=== PATIENT | female | born 1995 | race Caucasian/White ===

== ENCOUNTER 2018-08-26 12:24 | Outpatient (CLI) | payer OTHER ==
[2018-08-26 13:00] LABS: APPEARANCE,URINE SLIGHTLY-CLOUDY; BILIRUBIN,URINE NEGATIVE (NEGATIVE); COLOR,URINE YELLOW; GLUCOSE, URINE NEGATIVE (NEGATIVE); KETONES,URINE NEGATIVE (NEGATIVE); LEUKOCYTE ESTERASE,URINE SMALL (NEGATIVE); NITRITE,URINE NEGATIVE (NEGATIVE); PROTEIN,URINE NEGATIVE (NEGATIVE); URINE SPECIFIC GRAVITY 1.012; UROBILINOGEN,URINE NEGATIVE mg/dL (<2.0)
[2018-08-26 13:29] LABS: URINE AMPHETAMINES SCREEN NEGATIVE; URINE BARBITURATES SCREEN NEGATIVE; URINE BENZODIAZEPINES SCREEN NEGATIVE; URINE COCAINE SCREEN NEGATIVE; URINE MARIJUANA (THC) SCREEN NEGATIVE; URINE METHADONE SCREEN NEGATIVE; URINE PHENCYCLIDINE SCREEN NEGATIVE
[2018-08-26 13:54] LABS: UR PRO/CREAT RATIO RESULT 0.1 mg/mg (0.0-0.2); URINE CREATININE 99.9 mg/dL (16-327); URINE PROTEIN 10.1 mg/dL (<12)
[2018-08-26 14:10] LABS: HEMATOCRIT 30.8 % (36.0-47.0); HEMOGLOBIN 10.2 g/dL (12.0-15.5); MEAN CORPUSCULAR HEMOGLOBIN 23.7 pg (27.0-33.4); MEAN CORPUSCULAR HGB CONC 33.1 g/dL (32.0-36.0); MEAN CORPUSCULAR VOLUME 72 fl (80-97); PLATELET COUNT 229 10^3/uL (150-450); RED CELL DISTRIBUTION WIDTH 16.8 % (11.5-14.0); WHITE BLOOD COUNT 9.5 10^3/uL (4.0-10.5)
[2018-08-26 14:35] LABS: ALANINE AMINOTRANSFERASE 27 U/L (9-52); ALBUMIN 3.4 g/dL (3.5-5.0); ALKALINE PHOSPHATASE 120 U/L (38-126); ANION GAP 7 (5-19); ASPARTATE AMINO TRANSFERASE 28 U/L (14-36); BILIRUBIN,DIRECT 0.2 mg/dL (0.0-0.4); BILIRUBIN,TOTAL 0.3 mg/dL (0.2-1.3); BLOOD UREA NITROGEN 5 mg/dL (7-20); CALCIUM 9.2 mg/dL (8.4-10.2); CARBON DIOXIDE 24 mmol/L (22-30); CHLORIDE 105 mmol/L (98-107); GLUCOSE 71 mg/dL (75-110); POTASSIUM 4.2 mmol/L (3.6-5.0); SODIUM 136.1 mmol/L (137-145); TOTAL PROTEIN 6.2 g/dL (6.3-8.2); URIC ACID 4.4 mg/dL (2.5-6.2)
[2018-08-26] MEDS ORDERED: HYDROXYZINE PAMOATE 50 MG CAPSULE ONE (14:41)
[2018-08-26] MEDS ORDERED: HYDROXYZINE PAMOATE 50 MG CAPSULE PO ONE (14:43)
== END 2018-08-26 14:51 | disposition home or self-care (01) ==
LOC: LC 12:24
PROVIDERS: ATTEND Obstetrics & Gynecology
PROC: 4A1HXCZ Monitoring of Products of Conception, Cardiac Rate, External Approach (ICD-10-PCS; principal; 2018-08-26)
DX: O47.03 False labor before 37 completed weeks of gestation, third trimester (principal); O30.003 Twin pregnancy, unspecified number of placenta and unspecified number of amniotic sacs, third trimester; Z3A.33 33 weeks gestation of pregnancy
CPT/HCPCS: 36415; 59025; 80053; 80307; 81001; 82570; 83615; 84156; 84550; 85027

== ENCOUNTER 2018-09-23 06:58 | Inpatient (IN) | payer OTHER ==
[2018-09-22 12:40] LABS: APPEARANCE,URINE CLOUDY; BILIRUBIN,URINE NEGATIVE (NEGATIVE); GLUCOSE, URINE NEGATIVE (NEGATIVE); KETONES,URINE NEGATIVE (NEGATIVE); LEUKOCYTE ESTERASE,URINE LARGE (NEGATIVE); NITRITE,URINE NEGATIVE (NEGATIVE); PROTEIN,URINE 30 mg/dL (NEGATIVE); URINE SPECIFIC GRAVITY 1.023
[2018-09-22 12:45] LABS: COLOR,URINE DARK YELLOW
[2018-09-22 12:46] LABS: ABSOLUTE EOSINOPHILS # (AUTO) 0.1 10^3/uL (0.0-0.6); ABSOLUTE LYMPHOCYTES (AUTO) 1.6 10^3/uL (0.5-4.7); ABSOLUTE MONOCYTES (AUTO) 0.7 10^3/uL (0.1-1.4); ABSOLUTE NEUT (AUTO) 6.1 10^3/uL (1.7-8.2); BASOPHILS % (AUTO) 0.3 % (0-2); EOSINOPHILS % (AUTO) 0.8 % (0-6); HEMATOCRIT 30.3 % (36.0-47.0); HEMOGLOBIN 10.3 g/dL (12.0-15.5); LYMPHOCYTES % (AUTO) 18.8 % (13-45); MEAN CORPUSCULAR HEMOGLOBIN 23.5 pg (27.0-33.4); MEAN CORPUSCULAR HGB CONC 33.9 g/dL (32.0-36.0); MEAN CORPUSCULAR VOLUME 69 fl (80-97); MONOCYTES % (AUTO) 8.8 % (3-13); PLATELET COUNT 192 10^3/uL (150-450); RED BLOOD COUNT 4.38 10^6/uL (3.72-5.28); SEGMENTED NEUTROPHILS % (AUTO) 71.3 % (42-78); TOTAL CELLS COUNTED % (AUTO) 100 %; WHITE BLOOD COUNT 8.5 10^3/uL (4.0-10.5)
[2018-09-22 12:59] LABS: URINE AMPHETAMINES SCREEN NEGATIVE; URINE BARBITURATES SCREEN NEGATIVE; URINE BENZODIAZEPINES SCREEN NEGATIVE; URINE COCAINE SCREEN NEGATIVE; URINE MARIJUANA (THC) SCREEN NEGATIVE; URINE METHADONE SCREEN NEGATIVE; URINE PHENCYCLIDINE SCREEN NEGATIVE
[~2018-09-23 06:58] MED LIST: CEFAZOLIN 2 GM/D5W RTU 2 GM/50 ML RTUPB IV SCH; LACTATED RINGERS 1000 ML IV PRN; LIDOCAINE 0.5% INJ-PF (5 MG/ML) 50 ML SDV SUBCUT PRN; RINGERS SOLUTION,LACTATED 1,000 ML IV PRN
[2018-09-23] MEDS ORDERED: ACETAMINOPHEN 1,000 MG/100 ML RTUPB IV ONE (07:14)
[2018-09-23] MEDS ORDERED: ONDANSETRON HCL INJ/PF 4 MG/2 ML SDV ONE (07:14)
[2018-09-23] MEDS ORDERED: OXYTOCIN 10 UNIT/ML VIAL ONE (09:08)
[2018-09-23] MEDS ORDERED: OXYTOCIN/NORMAL SALINE 20 UNIT/1,000 ML RTUINJ ONE (09:08)
[2018-09-23] MEDS ORDERED: KETOROLAC TROMETHAMINE 60 MG/2 ML SDV ONE (09:08)
[2018-09-23] MEDS ORDERED: MISOPROSTOL 0.2 MG TABLET ONE (10:24)
[2018-09-23] MEDS ORDERED: ONDANSETRON HCL INJ/PF 4 MG/2 ML SDV IV PRN (10:30)
[2018-09-23] MEDS ORDERED: FENTANYL CITRATE INJ/PF 100 MCG/2 ML AMPUL IV PRN ×3 (10:30)
[2018-09-23] MEDS ORDERED: MEPERIDINE HCL/PF INJ 25 MG/1 ML DISP.SYRIN IV PRN (10:30)
[2018-09-23] MEDS ORDERED: MORPHINE SULFATE 10 MG/ML INJ IV PRN (10:30)
[2018-09-23] MEDS ORDERED: DIPHENHYDRAMINE HCL 50 MG/ML VIAL IV PRN (10:30)
[2018-09-23] MEDS ORDERED: PROMETHAZINE HCL INJ 25 MG/1 ML VIAL IV PRN ×2 (10:30→11:13)
[2018-09-23] MEDS ORDERED: MIDAZOLAM 2 MG/2 ML INJ ONE (10:59)
[2018-09-23] MEDS ORDERED: LIDOCAINE 1.5%/EPINEPHRINE INJ 5 ML AMP ONE (11:03)
[2018-09-23] MEDS ORDERED: DIPH/PERTUSS(ACELL)/TETANUS VAC/PF 0.5 ML SYR (>=10YO) IM PRN (11:13)
[2018-09-23] MEDS ORDERED: ACETAMINOPHEN 325 MG TABLET PO PRN (11:13)
[2018-09-23] MEDS ORDERED: ACETAMINOPHEN 1,000 MG/100 ML RTUPB IV PRN (11:13)
[2018-09-23] MEDS ORDERED: RINGERS SOLUTION,LACTATED 1,000 ML IV PRN (11:13)
[2018-09-23] MEDS ORDERED: MEASLES,MUMPS&RUBELLA VACC/PF 0.5 ML VIAL SUBCUT PRN (11:13)
[2018-09-23] MEDS ORDERED: OXYTOCIN/NORMAL SALINE 20 UNIT/1,000 ML RTUINJ IV PRN (11:13)
[2018-09-23] MEDS ORDERED: OXYCODONE-ACETAMINOPHEN 5-325 MG TABLET PO PRN (11:13)
[2018-09-23] MEDS ORDERED: HYDROMORPHONE HCL INJ/PF 2 MG/ML AMPULE IV PRN (11:13)
[2018-09-23] MEDS: FENTANYL CITRATE INJ/PF 100 MCG/2 ML AMPUL ONE ×2 (11:15→11:25)
[2018-09-23 12:04] LABS: CHLAM PCR NOT DETECTED (NOT DETECT)
[2018-09-23] MEDS ORDERED: HYDROMORPHONE HCL INJ/PF 2 MG/ML AMPULE ONE (12:17)
[2018-09-23] MEDS ORDERED: MEPERIDINE HCL/PF INJ 25 MG/1 ML DISP.SYRIN ONE (12:22)
[2018-09-23] MEDS: OXYCODONE-ACETAMINOPHEN 5-325 MG TABLET PO PRN ×2 (13:43→21:23)
[2018-09-23] MEDS ORDERED: KETOROLAC TROMETHAMINE INJ/PF 30 MG/1 ML SDV IV SCH (14:00)
--- NOTE | 2018-09-23 16:28 | Brief Operative Note ---
BRIEF OPERATIVE REPORT DATE OF SURGERY: 09/23/18 TIME OF SURGERY: 10:00 PREOPERATIVE DIAGNOSIS: , Dichorionic/Diamniotic TIUP, 37+1ega, Vertex/Breech presentation, Twin A with polyhydramnios, Twin B marginal cord insertion POSTOPERATIVE DIAGNOSIS: , Dichorionic/Diamniotic TIUP, 37+1ega, Vertex/Breech presentation, Twin A with polyhydramnios, Twin B marginal cord insertion SURGEON: ZUNILDA URIAS FINDINGS: Twin A - VMI delivered at 1010, Apgars 8/9, weight 3435g (7#9oz), vertex delivery. Twin B - VMI delivered at 1012, 7/9, weight 3010g (6#10oz), breech presentation, delivered. IVF 1200ml, UOP 150ml. Cytotec 1000mcg per rectum placed at conclusion of procedure. Normal bilateral tubes/ovaries. Normal uterus. At conclusion of procedure irregular darkened mole on left upper thigh noted. Patient consented for removal and mole removed in PACU while spinal was still effective. COMPLICATIONS: none ESTIMATED BLOOD LOSS: 1182 TISSUE REMOVED OR ALTERED: placenta and cord x 2 TECHNICAL PROCEDURE: Primary Section, Nevus removal left thigh
--- NOTE | 2018-09-23 16:30 | PDOC DELIVERY SUMMARY ---
Delivery Summary - Maternal Hx : I Hx Para: 0 Hx # Term Pregnancies: 0 Hx # Pregnancies: 0 Hx Total # of Abortions (Sponateous & Elective): 0 Number of Living Children: 0 EMRE: 10/13/18 Gestational Age: 37+2 Risk Factors: Polyhydramnios, Other - Twin Ruptured Membranes: AROM Time of Rupture: 10:09 Fluids: Clear, Poly Hydramnios Fluid Description: polyhydramnios Twin A, Twin B marginal cord insertion - Delivery Labor: Not In Labor Presentation: Vertex, Breech Heart Rate Monitoring: Done Pre-Operatively Uterine Contraction Monitoring: External Support Person Present: Yes Location: OR : Scheduled Placenta: Within Normal Limits Placenta Description: normal placenta and cord x 2 Number of Vessels (Cord): 3 Nuchal Cord: Yes Delivery of Placenta Date: 09/23/18 Delivery of Placenta Time: 10:13 Estimated Blood Loss: 1182 Delivery Quantitative Blood Loss (QBL): 1,182 - Medications Type of Anesthesia:: Spinal - Delivery Medications Delivery Meds: Cytotec 1000mcg Per Rectum/Vagina - Infant Assess and Care Baby 1 Male Delivery of Date: 09/23/18 Delivery of Infant Time: 10:10 at 5 minutes: 8 at 10 minutes: 9 Preprinted Number On Band: [id number] Skin to Skin: No Skin to Skin (Mins): 0 To Nursery At: 10:21 Mode of Transport: Bassinet Infant Delivery Weight: 3,435 Infant Delivery Length: 19.75 in Baby 2 Male Delivery of Infant Date: 09/23/18 Delivery of Time: 10:12 at 1 minute: 7 at 5 minutes: 9 Preprinted Number On Band: [id number] Skin to Skin: No Skin to Skin (Mins): 0 To Nursery At: 10:22 Mode of Transport: Bassinet Infant Delivery Weight: 3,010 Delivery Length: 20 in - Delivery Personnel Hvac Mechanical Engineer: SALEEM HERRERA Nursery RN: SOFÍA ANDRE RN: RAJANI ALCANTAR RN: DELONTE SILVEIRA MD: ZUNILDA URIAS
[2018-09-23] MEDS: DOCUSATE SODIUM 100 MG CAPSULE PO SCH (18:07)
[2018-09-23] MEDS: KETOROLAC TROMETHAMINE INJ/PF 30 MG/1 ML SDV IV SCH (18:07)
[2018-09-24] MEDS: KETOROLAC TROMETHAMINE INJ/PF 30 MG/1 ML SDV IV SCH (01:19)
--- NOTE | 2018-09-24 01:30 | Operative Report ---
Operative Report DATE OF SURGERY: 09/23/18 PREOPERATIVE DIAGNOSIS: , Dichorionic/Diamniotic TIUP, 37+1ega, Vertex/Jazzy ch presentation, Twin A with polyhydramnios, Twin B marginal cord insertion POSTOPERATIVE DIAGNOSIS: , Dichorionic/Diamniotic TIUP, 37+1ega, Vertex/Breech presentation, Twin A with polyhydramnios, Twin B marginal cord insertion, Atypical appearing Nevus on left thigh OPERATION: Primary Section, Nevus removal left thigh SURGEON: ZUNILDA URIAS ANESTHESIA: Spinal TISSUE REMOVED OR ALTERED: placenta and cord x 2, nevus (from upper left thigh) ESTIMATED BLOOD LOSS: 1182 INTRAOPERATIVE FINDINGS: Twin A - VMI delivered at 1010, Apgars 8/9, weight 3435g (7#9oz), vertex delivery. Twin B - VMI delivered at 1012, 7/9, weight 3010g (6#10oz), breech presentation, delivered. IVF 1200ml, UOP 150ml. Cytotec 1000mcg per rectum placed at conclusion of procedure. Normal bilateral tubes/ovaries. Normal uterus. At conclusion of procedure irregular darkened mole on left upper thigh noted. Patient consented for removal and mole removed in PACU while spinal was still effective. PROCEDURE: Anesthesia provider: [Charlene Flowers CRNA, Damien IQBLA] Urine output: [150ml] IV fluids: [1200ml] Indications: [23yo at 37+1ega presents for scheduled section due to Dichorionic/Diamniotic TIUP. Twin A with polyhydramnios and vertex. Twin B with marginal cord insertion and variable presentation between transverse and breech (reportedly vertex on 09/22/2018). She was counseled regarding the mode of delivery vaginal versus cesaren section for TIUP and she desires primary section due to variable presentation of baby B and concern for breech extraction of second twin. The risks, benefits, alternatives were reviewed and she desires to proceed with planned procedure of primary section. At the conclusion of her section atypical appearing nevus on upper left thigh was noted and consent for removal obtained and signed.] Procedure: The patient was taken to the operating room where spinal anesthesia was obtained and found to be adequate. She was then prepped and draped in the normal sterile fashion and placed in the dorsal supine position with a leftward tilt. A Pfannenstiel skin incision was then made and carried through to the underlying layers of the fascia with the scalpel. The fascia was incised in the midline and the incision extended laterally with the Castillo scissors. The superior aspect of the fascial incision was then grasped with Melania clamps elevated and the underlying rectus muscles dissected off [bluntly]. Attention was then turned to the inferior aspect of the fascial incision which in a similar fashion was grasped, tented up with Melania clamps, and the rectus muscles dissected off [bluntly]. The rectus muscles were then in the midline and the peritoneum at the amount identified and entered [bluntly]. The peritoneal incision was then extended superiorly and inferiorly with good visualization of the bladder. The bladder blade was inserted and the vesicouterine peritoneum identified grasped with [place] pickups and entered sharply with the Metzenbaum scissors. This incision was then extended laterally with the Metzenbaum scissors and a bladder flap created digitally. The bladder blade was then reinserted and the lower uterine segment incised in a transverse fashion with the scalpel. The uterine incision was then extended bluntly. The bladder blade was removed and the baby A head was delivered from cephalic presentation atraumatically. The nose and mouth were suctioned and the cord doubly clamped and cut. And the was handed off to waiting pediatricians. At this time AROM was performed for amniotic sac of baby B and baby B was delivered from double footling breech presentation atraumatically. The nose and mouth were suctioned and the cord doubly clamped and cut and the infant was handed off to awaiting pedatricians. The placentas were then delivered spontaneously and the uterus exteriorized and cleared of all clots and debris. The uterine incision was then repaired with 1- 0 Vicryl in a running locked fashion. A second layer of the same suture was used to obtain hemostasis via imbrication of the initial layer. The bladder flap was then repaired with 3-0 chromic in a running fashion. The uterus was returned to the patient's abdomen and Interceed was placed overlying the uterine incision to prevent adhesions. The gutters were cleared of all clots and debris. All operative sites were noted to be hemostatic. The fascia was reapproximated with 0 Vicryl in a running fashion from each lateral edge to the midline. The skin was closed with 3-0 Monocryl in a running subcuticular fashion with overlying Dermabond for additional dressing as well as wound closure. The patient tolerated the procedure well. Sponge lap needle and instrument counts are correct times 2. 2 g of Ancef were given prior to skin incision. The patient was taken to the recovery area awake and in stable condition. In the PACU the atypical nevus was injected with 1ml of 2% lidocaine and 11 blade was used to excise the 0.5cm atypical nevus in the left upper thigh. Simple interrupted suture of 3-0 vicryl was placed times two. Bandaid was placed and patient tolerated the additional procedure well.
[2018-09-24 06:08] LABS: HEMATOCRIT 26.1 % (36.0-47.0); HEMOGLOBIN 8.8 g/dL (12.0-15.5); MEAN CORPUSCULAR HEMOGLOBIN 23.5 pg (27.0-33.4); MEAN CORPUSCULAR HGB CONC 33.7 g/dL (32.0-36.0); MEAN CORPUSCULAR VOLUME 70 fl (80-97); PLATELET COUNT 149 10^3/uL (150-450); RED BLOOD COUNT 3.75 10^6/uL (3.72-5.28); RED CELL DISTRIBUTION WIDTH 17.8 % (11.5-14.0); WHITE BLOOD COUNT 9.7 10^3/uL (4.0-10.5)
[2018-09-24] MEDS: OXYCODONE-ACETAMINOPHEN 5-325 MG TABLET PO PRN ×3 (08:14→21:22)
[2018-09-24] MEDS: SIMETHICONE 80 MG TAB.CHEW PO PRN ×2 (08:14→17:09)
[2018-09-24] MEDS: DOCUSATE SODIUM 100 MG CAPSULE PO SCH ×2 (09:08→17:09)
[2018-09-24] MEDS: PRENATAL VITAMIN W DHA CAPSULE PO SCH (09:08)
--- NOTE | 2018-09-24 09:45 | PDOC PROGRESS REPORT ---
Subjective-OB Progress Note for:: 09/24/18 - POD #1, s/p for Twins, Doing well, , O+, Rubella Non Immune. Physical Exam (OB) Vital Signs: Temp Pulse Resp BP Pulse Ox 98.3 F 84 18 119/73 98 09/24/18 08:57 09/24/18 08:57 09/24/18 08:57 09/24/18 08:57 09/24/18 08:57 Intake & Output 09/23/18 09/24/18 09/25/18 06:59 06:59 06:59 Intake Total 4160 Output Total 3257 Balance 903 Weight 99 kg - General General Appearance: Appears well, Alert - Incision: Well Approximated Closure Type: Surgical Glue - Lochia Lochia Amount: Moderate 25-50 ml Lochia Color: Rubra/Red - Abdomen Description: Soft Hernia Present: No Fundal Description: Firm, Midline Fundal Height: u/u - u/2 - Respiratory Respiratory Status: No respiratory distress Breath sounds: Clear - Cardiovascular Rhythm: Regular Heart Sounds: Normal auscultation - Abdominal Inspection: Normal Distension: No distension Tenderness: Nontender Abdominal Notes: +bowel sounds - Genitourinary Genitourinary Note: voiding - Extremities Upper extremity: Normal inspection Lower extremities: Normal inspection - Neurological Cognition: Normal Orientation: AAOx4 - Psychological Associated symptoms: Normal affect, Normal mood - Skin Skin Temperature: Warm Skin Moisture: Dry Objective-Diagnostic Laboratory: 09/24/18 05:43 09/24/18 05:43 WBC 9.7 RBC 3.75 Hgb 8.8 L Hct 26.1 L MCV 70 L MCH 23.5 L MCHC 33.7 RDW 17.8 H Plt Count 149 L Assessment and Plan(PN) - Assessment and Plan (1) Anemia, Is this a current diagnosis for this admission?: Yes (2) Polyhydramnios, third trimester, fetus 2 Is this a current diagnosis for this admission?: Yes (3) Status post primary low transverse section Is this a current diagnosis for this admission?: Yes (4) Twin Qualifiers: Multiple gestation type: dichorionic and diamniotic Is this a current diagnosis for this admission?: Yes - Time Spent with Patient Time with patient: Less than 15 minutes Medications reviewed and adjusted accordingly: Yes - Disposition Anticipated Discharge: Home Within: within 48 hours
[2018-09-24] MEDS: FERROUS SULFATE 325 MG TABLET PO SCH (11:09)
[2018-09-24] MEDS: IBUPROFEN 800 MG TABLET PO SCH ×3 (11:09→23:35)
[2018-09-25] MEDS: OXYCODONE-ACETAMINOPHEN 5-325 MG TABLET PO PRN ×4 (04:34→20:47)
[2018-09-25] MEDS: IBUPROFEN 800 MG TABLET PO SCH ×4 (05:12→23:20)
[2018-09-25] MEDS: FERROUS SULFATE 325 MG TABLET PO SCH (09:09)
[2018-09-25] MEDS: PRENATAL VITAMIN W DHA CAPSULE PO SCH (09:09)
[2018-09-25] MEDS: DOCUSATE SODIUM 100 MG CAPSULE PO SCH ×2 (09:09→17:55)
--- NOTE | 2018-09-25 12:14 | PDOC DISCHARGE SUMMARY ---
Addendum entered and electronically signed by TISH FRANCISCO CNM 09/26/18 10:27: Final Diagnosis Discharge Date: 09/26/18 - Final Diagnosis (1) Anemia, Is this a current diagnosis for this admission?: Yes (2) Polyhydramnios, third trimester, fetus 2 Is this a current diagnosis for this admission?: Yes (3) Status post primary low transverse section Is this a current diagnosis for this admission?: Yes (4) Twin Is this a current diagnosis for this admission?: Yes Original Note: Final Diagnosis Discharge Date: 09/25/18 - Final Diagnosis (1) Anemia, Is this a current diagnosis for this admission?: Yes (2) Polyhydramnios, third trimester, fetus 2 Is this a current diagnosis for this admission?: Yes (3) Status post primary low transverse section Is this a current diagnosis for this admission?: Yes (4) Twin Is this a current diagnosis for this admission?: Yes Discharge Data - Discharge Medication Home Medications: Aspirin [Aspirin 81 mg Chewable Tablet] 1 tab PO DAILY 09/22/18 Comb No.42/Folic Acid [Prena1 Chew Tablet] 1 tab PO DAILY 09/22/18 Ranitidine HCl [Zantac 150 mg Tablet] 1 tab PO DAILY 09/22/18 Reason(s) for Admission: Ceasarean Section-Primary, Twins Procedures: None Intrapartum Procedure(s): : Low Cervical, Transverse - Diagnosis Test Laboratory: Temp Pulse Resp BP Pulse Ox 98.3 F 80 12 121/73 98 09/25/18 07:00 09/25/18 07:00 09/25/18 07:00 09/25/18 07:00 09/25/18 07:00 09/22/18 09/22/18 09/24/18 11:24 11:34 05:43 RBC 4.38 3.75 Hgb 10.3 L 8.8 L Hct 30.3 L 26.1 L Urine Opiates Screen NEGATIVE - Discharge information/Instructions Discharge Activity: Balance Activity w/Rest, No Lifting Over 10 Pounds, No Lifting/Push/Pulling, Pelvic Rest, No tub bath Discharge Diet: Regular Disposition: HOME, SELF-CARE Follow up with: [facility] in: 5, Days
[2018-09-26] MEDS: IBUPROFEN 800 MG TABLET PO SCH ×3 (06:32→17:18)
[2018-09-26] MEDS: PRENATAL VITAMIN W DHA CAPSULE PO SCH (09:54)
[2018-09-26] MEDS: DOCUSATE SODIUM 100 MG CAPSULE PO SCH ×2 (09:54→17:18)
[2018-09-26] MEDS: FERROUS SULFATE 325 MG TABLET PO SCH (09:54)
--- NOTE | 2018-09-26 10:27 | PDOC PROGRESS REPORT ---
Subjective-OB Progress Note for:: 09/26/18 Subjective: Pt unable to be discharged yesterday secondary to male twin wt and blood sugar. She reports doing well, ambulatory, reg diet and voiding without difficulty. + flatus Physical Exam (OB) Vital Signs: Temp Pulse Resp BP Pulse Ox 98.3 F 81 18 121/73 98 09/26/18 10:17 09/26/18 10:17 09/26/18 10:17 09/26/18 10:17 09/26/18 10:17 Intake & Output 09/25/18 09/26/18 09/27/18 06:59 06:59 06:59 Intake Total 600 Output Total 1000 Balance 600 -1000 - Dressing Removed: Yes Incision: Well Approximated Closure Type: Surgical Glue - Lochia Lochia Amount: Small 10-25 ml Lochia Color: Rubra/Red - Abdomen Description: Soft, Round Hernia Present: No Fundal Description: Firm, Midline Fundal Height: u/u - u/2 Objective-Diagnostic Laboratory: 09/24/18 05:43 Assessment and Plan(PN) - Assessment and Plan (1) Anemia, Is this a current diagnosis for this admission?: Yes (2) Polyhydramnios, third trimester, fetus 2 Is this a current diagnosis for this admission?: Yes (3) Status post primary low transverse section Is this a current diagnosis for this admission?: Yes (4) Twin Qualifiers: Multiple gestation type: dichorionic and diamniotic Trimester: third trimester Qualified Code(s): O30.043 - Twin , dichorionic/diamniotic, third trimester Is this a current diagnosis for this admission?: Yes - Time Spent with Patient Time with patient: Less than 15 minutes Medications reviewed and adjusted accordingly: Yes - Disposition Anticipated Discharge: Home Within: within 24 hours
[2018-09-26 14:32] VITALS: BP 121/73
== END 2018-09-26 18:30 | disposition home or self-care (01) | DRG 788 ==
LOC: 2S 06:58
PROVIDERS: ADMIT Student in an Organized Health Care Education/Training Program; ATTEND Student in an Organized Health Care Education/Training Program
PROC: 4A1HXCZ Monitoring of Products of Conception, Cardiac Rate, External Approach (ICD-10-PCS; 2018-09-23)
PROC: 10D00Z1 Extraction of Products of Conception, Low, Open Approach (ICD-10-PCS; principal; 2018-09-24)
PROC: 0HBJXZZ Excision of Left Upper Leg Skin, External Approach (ICD-10-PCS; 2018-09-24)
DX: O32.1XX0 Maternal care for breech presentation, not applicable or unspecified (principal); Z37.2 Twins, both liveborn; O40.3XX2 Polyhydramnios, third trimester, fetus 2; O43.123 Velamentous insertion of umbilical cord, third trimester; O99.713 Diseases of the skin and subcutaneous tissue complicating pregnancy, third trimester; D22.72 Melanocytic nevi of left lower limb, including hip; O90.81 Anemia of the puerperium; D64.9 Anemia, unspecified; O30.043 Twin pregnancy, dichorionic/diamniotic, third trimester; Z3A.37 37 weeks gestation of pregnancy
CPT/HCPCS: 1961; 36415; 80307; 81001; 85025; 85027; 86850; 86900; 86901; 87491; 87591; 88305; 88307; 90707; 94799; C1765; J0131; J0690; J1170; J1885; J2175; J2250; J2405; J2590; J3010; J3490; J7120